=== PATIENT | female | born 1980 | race Caucasian/White ===

== ENCOUNTER 2020-08-18 15:59 | Emergency (ER) | payer MEDICAID ==
[~2020-08-18] VITALS: Ht 170.2 cm; Wt 84.1 kg
[2020-08-18] MEDS ORDERED: CLINDAMYCIN300 M1 PO (16:45)
[2020-08-18] MEDS ORDERED: PERCOCET 5/325M1 TAB PO (16:45)
[2020-08-18 17:20] VITALS: BP 130/81
== END 2020-08-18 17:20 | disposition home or self-care (01) ==
LOC: ED 15:59
DX: K04.7 Periapical abscess without sinus (principal)